=== PATIENT | female | born 1955 | race Caucasian/White ===

== ENCOUNTER → 2017-08-21 | Outpatient (CLI) | payer OTHER ==
[~2017-08-21] MED LIST: IBUP600T44 PO; PRLSR20 PO; ZNTT/150 PO
--- NOTE | 2017-08-21 15:37 | MAMMOGRAPHY REPORT ---
BILATERAL DIGITAL SCREENING MAMMOGRAM TOMOSYNTHESIS WITH CAD: 08/21/2017 CLINICAL HISTORY: Routine screening. Patient has no complaints. TECHNIQUE: Breast tomosynthesis in addition to standard 2D mammography was performed. Current study was also evaluated with a Computer Aided Detection (CAD) system. COMPARISON: Comparison is made to exams dated: 07/31/2016 mammogram, 07/13/2015 mammogram, 06/23/2014 mammogram, 03/24/2012 mammogram, 02/24/2011 ultrasound, and 02/13/2011 mammogram - [facility]. BREAST COMPOSITION: There are scattered areas of fibroglandular density in both breasts. FINDINGS: No suspicious masses, calcifications, or areas of architectural distortion are noted in ei ther breast. There has been no significant interval change compared to prior exams. IMPRESSION: ACR BI-RADS CATEGORY 1: NEGATIVE There is no mammographic evidence of malignancy. A 1 year screening mammogram is recommended. The pa tient will receive written notification of the results. Approximately 10% of breast cancers are not detected with mammography. A negative mammographic report should not delay biopsy if a clinically suggestive mass is present. Merna Martinez M.D. ah/:08/21/2017 14:45:49 Child Care Lead Teacher: Yasmeen AGUIRRE(Janna)(M), [facility] letter sent: Normal 1/2 BI-RADS Code: ACR BI-RADS Category 1: Negative
== END | disposition home or self-care (01) ==
LOC: C.MAMM 14:08
PROVIDERS: ATTEND Student in an Organized Health Care Education/Training Program
DX: Z12.31 Encounter for screening mammogram for malignant neoplasm of breast (principal)

== ENCOUNTER → 2017-11-13 | Outpatient (CLI) | payer OTHER ==
[~2017-11-13] MED LIST changes: +RANI150T85 PO; -ZNTT/150 PO
--- NOTE | 2017-11-13 16:15 | DIAGNOSTIC IMAGING REPORT ---
L UPPER EXT JOINT WITHOUT CLINICAL HISTORY: LEFT SHOULDER ROTATOR CUFF TEAR pain TECHNIQUE: Multiaxial MRI acquisition COMPARISON STUDY: None FINDINGS: Somewhat limited study due to considerable patient motion. Considerable artifact is present. Signal characteristics of the osseous structures are in general unremarkable. There is no major bone marrow replacing process. There appears to be generalized moderate to rather significant degenerative change of the glenohumeral joint. There is considerable thinning of the articular surface. Evaluation of the rotator cuff is problematic due to the motion artifact present. There is a small amount of fluid within the subcutaneous acromial and acromial clavicular joint region. A trace is identified within the subdeltoid bursa. There is considerable thinning of the supraspinatus tendon at its insertion laterally. There is to be a full-thickness tear best seen on coronal image 12. There is generalized deterioration of the tendon with superimposed tendinopathy. The infraspinatus and subscapularis tendons are considered intact. There is mild subscapularis tendinopathy. Biceps tendon is poorly seen but appears to be generally intact. Glenoid labrum is not evaluated diagnostically on this exam. Margin motion artifact precludes accurate evaluation in that regard. There does appear to be substance loss of the labrum indicative of at least considerable degenerative change. IMPRESSION: 1. Limited study due to considerable motion artifact. 2. 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 Probable focal full-thickness tear lateral aspect of the supraspinatus tendon at its insertion. 4. Mild subscapularis tendinopathy. 5. Moderate to rather significant degenerative change of the articular services throughout as well as the substance of the glenoid labrum. 6. All structures again are suboptimally seen due to considerable motion artifact. The above report was generated using voice recognition software. It may contain grammatical, syntax or spelling errors. Electronically signed by: Alexey Byrne M.D. 11/13/2017 4:13 PM Dictated Date/Time: 11/13/2017 4:06 PM
== END | disposition home or self-care (01) ==
LOC: C.MRIBC 15:02
PROVIDERS: ATTEND Orthopaedic Surgery
DX: S46.012A Strain of muscle(s) and tendon(s) of the rotator cuff of left shoulder, initial encounter (principal); X58.XXXA Exposure to other specified factors, initial encounter